=== PATIENT | female | born 1975 | race Caucasian/White ===

== ENCOUNTER → 2023-07-20 11:34 | Outpatient (REF) | payer MEDICARE, OTHER, SELFPAY | LOC: HWWDC 11:34 | PROVIDERS: ATTENDING PHYSICIAN Family Medicine | DX: Z12.31 Encounter for screening mammogram for malignant neoplasm of breast (principal) | CPT/HCPCS: 77063; 77067 ==

== ENCOUNTER → 2023-12-07 11:54 | Outpatient (REF) | payer MEDICARE, OTHER, SELFPAY | LOC: HWRAD 11:54 | PROVIDERS: ATTENDING PHYSICIAN Physician Assistant Medical; FAMILY PHYSICIAN Physician Assistant Medical | DX: G89.4 Chronic pain syndrome (principal) | CPT/HCPCS: 73502 ==

== ENCOUNTER 2024-07-29 12:59 | Emergency (ER) | payer MEDICARE, OTHER, SELFPAY ==
[2024-07-29] VITALS (7 sets, daily range): BP systolic 126–161; BP diastolic 75–94
--- NOTE | 2024-07-29 17:29 | ED.GENMED ---
History of Present Illness
<Elmo Ambrosio MD - Last Filed: 07/29/24 17:35>
General
Chief Complaint: Esophageal Problem
Source: patient
Exam Limitations: none
Time Seen by Provider: 07/29/24 14:49
Nursing documentation reviewed up to this point in time: agreed with
History of Present Illness
History of Present Illness:
Patient presents to ED secondary to persistent sensation of pain and difficulty swallowing, after accidentally swallowing 2 large Gummies 2 days ago. Denies chest pain or shortness of breath. Denies fever or chills. Denies nausea or vomiting.
Patient has been able to tolerate water and saliva, but with mild difficulty. Patient attempted to eat soft food yesterday, i.e. applesauce, and had difficult time, although without any vomiting episodes. Denies previous history of similar
symptoms.
Past History
<Elmo Ambrosio MD - Last Filed: 07/29/24 17:35>
Past History
ED Past Medical History: Other (chronic back pain)
ED Past Surgical History: Cholecystectomy and
Social History
Tobacco: Non-smoker
Personal:
Living: with family
Employment: Employed
Review of Systems
<Elmo Ambrosio MD - Last Filed: 07/29/24 17:35>
Review of Systems
Allergies reviewed?: Yes
All Other Systems: ROS reviewed and negative except as documented in HPI and ROS
Constitutional: Reports no symptoms
Respiratory: Reports no symptoms; Denies trouble breathing
Cardiac: Reports no symptoms; Denies chest pain
ABD/GI: Denies abdominal pain or vomiting
Musculoskeletal: Reports no symptoms
Skin: Reports no symptoms
Neurological: Reports no symptoms
Phy Exam
<Elmo Ambrosio MD - Last Filed: 07/29/24 17:35>
Physical Exam
Physical Exam:
Physical Exam
General: mild distress, not acutely ill. afebrile
Head: nc/at. eomi
Neck: supple. normal range of motion.
Heart: s1/s2 regular rate and rhythm
Lungs: no acute respiratory distress. clear bilaterally
Abdomen: normal bowel sounds. not tender.
Neuro: alert and oriented x 3. no focal neurological deficits
Skin: no rash
Psychiatric: well kept. interactive and cooperative
Extremities: no edema. no calf tenderness.
Course
<Elmo Ambrosio MD - Last Filed: 07/29/24 17:35>
Orders/Labs/Results
Orders:
Orders
07/29/24 13:11
EKG [Electrocardiogram (*1)] Urgent
Reason for Study: Chest Pain
EKG- Treatment ONCE
07/29/24 17:08
RF Esophagus-Single Contrast Urgent
Reason For Exam: esophageal food impaction
Vital Signs
Initial and Last Documented VS:
Initial Vital Signs
Temp Pulse Resp BP Pulse Ox
98.7 F 84 18 161/94 100
07/29/24 13:07 07/29/24 13:07 07/29/24 13:07 07/29/24 13:07 07/29/24 13:07
Last Documented Vital Signs
Temp Pulse Resp BP Pulse Ox
98.7 F 88 16 150/90 99
07/29/24 13:07 07/29/24 19:47 07/29/24 18:00 07/29/24 19:47 07/29/24 19:47
<Stacy Messer MD - Last Filed: 07/30/24 01:39>
Orders/Labs/Results
Orders:
Orders
07/29/24 13:11
EKG [Electrocardiogram (*1)] Urgent
Reason for Study: Chest Pain
EKG- Treatment ONCE
07/29/24 17:08
RF Esophagus-Single Contrast Urgent
Reason For Exam: esophageal food impaction
Vital Signs
Initial and Last Documented VS:
Initial Vital Signs
Temp Pulse Resp BP Pulse Ox
98.7 F 84 18 161/94 100
07/29/24 13:07 07/29/24 13:07 07/29/24 13:07 07/29/24 13:07 07/29/24 13:07
Last Documented Vital Signs
Temp Pulse Resp BP Pulse Ox
98.7 F 88 16 150/90 99
07/29/24 13:07 07/29/24 19:47 07/29/24 18:00 07/29/24 19:47 07/29/24 19:47
<Stacy Messer MD - Last Filed: 07/30/24 01:39>
*Critical Care Note
Total Time (30-74mins, 75-104mins- exclusive of procedures): Not Applicable
<Stacy Messer MD - Last Filed: 07/30/24 01:39>
Update Note
Update Note:
745p: barium swallow negative. discussed with GI who recommended PPI bid for 1 week then daily as well as carafate bid for 3 days. patient tolerative po. advised liquid diet. will dc
ED Attending Note
<Elmo Ambrosio MD - Last Filed: 07/29/24 17:35>
-
Portions of this chart may have been created with voice recognition software.� Occasional wrong word or��sound alike� substitutions may have occurred due to the inherent limitations of voice recognition software.
Discharge Plan
Departure
Patient Disposition: Home (Routine Discharge)
Date of Disposition: 07/29/24
Time of Disposition: 19:41
Patient with high blood pressure during this ER visit?: Yes
Discharge Problem:
Foreign body sensation, throat
Instructions: Clear Liquid Diet
Prescriptions:
New
omeprazole 20 mg capsule,delayed release(DR/EC)
20 mg PO BID Qty: 30 0RF
Rx Instructions:
twice a day for a week then once a day
sucralfate [Carafate] 100 mg/mL suspension
1 g PO BID 3 Days Qty: 60 0RF
Rx Instructions:
no medications 2 hours before or after administration
No Action
cyclobenzaprine 10 MG tablet
10 mg PO HS
atorvastatin 10 MG tablet
10 mg PO QPM
propranolol 10 MG tablet
10 mg PO HS
oxycodone-acetaminophen [Percocet] 1 EACH tablet
1 ea PO Q4H PRN (Reason: pain)
oxycodone-acetaminophen [Percocet] 1 EACH tablet
1 ea PO HS
ibuprofen 200 MG tablet
600 mg PO Q4HPRN PRN (Reason: pain)
diazepam [Valium] 10 MG tablet
10 mg PO PRN PRN (Reason: spasm)
Referrals:
Sharmaine Conroy PA-C [Family Provider, Family Practice]
Activity Restrictions/Additional Instructions:
You were seen in the Emergency Department today for a foreign body sensation in your esophagus. Please try taking omeprazole twice a day for a week and then once a day. Please take Carafate twice a day for 3 days. Please do not take anything 2
hours before or after administration of Carafate. It may make you constipated so please add MiraLAX or increase your fiber. intake.
We would like for you to follow up with your primary care physician for further evaluation. If you experience fever, worsening of your symptoms, or develop any other new or concerning symptoms, please return to the Emergency Department immediately.
Please see the attached sheet for additional information.
Interventions
Interventions:
*Risk Screen - Suicide Last Done: 07/29/24 13:09
*General Assessment Last Done: 07/29/24 13:09
*Neglect/Abuse Screening Last Done: 07/29/24 13:09
*ED- Fall Risk Assessment Last Done: 07/29/24 14:54
*ED COVID-19 Vaccine History Last Done: 07/29/24 14:54
*Nursing Disposition Last Done: 07/29/24 20:05
SP-Stjhqf-Yggdljgwce Assessment Last Done: 07/29/24 14:54
ED-EENT Assessment Last Done: 07/29/24 14:54
Discharge Date and Time
Discharge Date/Time: 07/29/24 20:05
Print Language: SAO TOMEAN
== END 2024-07-29 20:05 | disposition home or self-care (01) ==
LOC: EMR 12:59
PROVIDERS: EMERGENCY PHYSICIAN Emergency Medicine; FAMILY PHYSICIAN Physician Assistant Medical
DX: R09.A2 Foreign body sensation, throat (principal); R13.10 Dysphagia, unspecified; Z90.49 Acquired absence of other specified parts of digestive tract
CPT/HCPCS: 99284; 74220; 93005